=== PATIENT | male | born 1960 ===

== ENCOUNTER 2023-12-19 08:19 | Outpatient (RCR) | payer MEDICARE, BC, SELFPAY ==
--- NOTE | 2023-12-19 09:29 | PT.OPEX ---
PT [facility] Eval PT [facility] Outpatient Eval Start: 12/19/23 07:50 Freq: Status: Active Protocol: Document 12/19/23 09:20 KLV (Rec: 12/19/23 09:29 KLV [id number]) E-signed By Faith Greenwood, PT Physical Therapy Outpatient Evaluation Insurance Information Recert Due Date 03/14/24 Insurance Name [employer],Medicare B, [employer] Medical Diagnosis R knee OA Pre-op R TKA DOS 12/29/23 [facility] Treating Diagnosis R knee pain, limited knee ROM, gross LE weakness Referring MD Derrick Subjective Subjective Felipe reports to PT with primary complaint of chronic R knee pain limiting his ability to walk. Currently not using AD. Imaging indicating end stage OA and appropriate for R TKA. He is scheduled for SDS 12/29/23. Lives in [place] with his on the third floor of a condominium. Able to use elevator and no steps to enter building. Patient does not have AD or OP PT set up at this time however encouraged patient to do so prior to surgery. Patient notes understanding. Patient is active and would like to return to walking and playing baseball when he travels back to [place] this winter. PMH: L TKA, R TSA, L RCR, asthma, HTN Pain Comments 07/22 Date of Last Physician Visit 12/16/23 Date of Surgery (If applicable) 12/29/23 Current Work Status Retired Precautions Therapy Limitations/Systems Review Not Limited Objective Other/Pertinent Objective Knee ROM: -L 0-110 -R 0-116 (genu varus) Generally 4/5 LE strength, good quad contraction Generally normal gait with moderate bowing of R LE Assessment Assessment/Impression Felipe is a 63 year old male presenting to PT for preparation of upcoming R TKA DOS 12/29/23 d/t end stage OA. Session focused on education of post-operative fall prevention precautions, transfers, gait with AD, stair negotiation, post-operative exercises. He is able to verbalize precautions and demonstrated independence with exercises, gait and stairs. He is appropriate to proceed with surgery at this time. Plan of Care Rehabilitation Potential Good Physical Therapy Goals By end of session today, patient will... Demonstrate appropriate gait pattern with FWW to utilize post surgery for optimal safety when ambulating Demonstrate ability to negotiate stairs using appropriate stair pattern post surgery for optimal safety when at home and in community Verbalize understanding of most appropriate home set up including needed equipment for optimal safety and recovery post surgery Be independent in HEP program to show ability to perform appropriate exercises post surgery Treatment Plan/Direct Interventions Gait Training,Ice/Cold/ Vasopneumatic,Joint Mobilization,Manual Therapy, Neuromuscular Re-ed,Self-Care/ Home Management,Therapeutic Activities,Therapeutic Exercises Frequency/Duration Pre-op TKA Evaluation Patient Will Be Discharged From Therapy Completion of LTG(s), Independent w/HEP, Independently Progressing Evaluation Billing Untimed Code Treatment Minutes 25 Complexity Low Certification Information Initial Certification Date 12/19/23 Ending Certification Date 03/14/24 Provider Signature Required Yes Provider Signature Shows Agreement With POC & Medical Necessity Physician NPI Number Write NPI# Here Physician Comment/Change : Physician Signature & Date Requested Please Sign/Date Here
== END 2023-12-19 14:52 | disposition home or self-care (01) ==
PROVIDERS: PCP Family Medicine; Visit Provider Orthopaedic Surgery Sports Medicine
DX: M17.11 Unilateral primary osteoarthritis, right knee (principal); Z51.89 Encounter for other specified aftercare
CPT/HCPCS: 97110; 97161

== ENCOUNTER 2023-12-29 07:13 | Day surgery (SDC) | payer MEDICARE, BC, SELFPAY ==
[2023-12-29] VITALS (22 sets, daily range): BP systolic 99–140; BP diastolic 62–95; PULSE 49–71; RESP 12–17; TEMP 36.1–36.7; O2SAT 95–99; BMI 24.3
--- NOTE | 2023-12-29 07:31 | SUR.PREOP ---
Dr. Sweeney here to see patient
--- NOTE | 2023-12-29 07:37 | W.PM.H&PU ---
History & Physical Update History & Physical Update H&P Reviewed and patient assessed: No changes noted
[2023-12-29] MEDS: OXYCODONE (CR) 10 MG TAB.ER.12H PO (08:00)
[2023-12-29] MEDS: ACETAMINOPHEN 500 MG TABLET 1000 MG PO (08:00)
[2023-12-29] MEDS: LACTATED RINGERS 1000 ML 1,000 ML 100 ML IV ×2 (08:05→09:00)
[2023-12-29] MEDS: SODIUM CHLORIDE 0.9 % (FLUSH) 10 ML SYRINGE IVF (08:10)
[2023-12-29] MEDS: CELECOXIB 200 MG CAPSULE PO (08:30)
--- NOTE | 2023-12-29 08:45 | SUR.PREOP ---
TIME?OUT:?0846 PT/RN/MDA?VERIFICATION?OF?SURGICAL?SITE,?PROCEDURE,?AND?CONSENT OBTAINED?PRIOR?TO?INVASIVE?PROCEDURE. all in agreement.
[2023-12-29] MEDS: fentaNYL 100 MCG/2 ML inj IVP (08:47)
[2023-12-29] MEDS: MIDAZOLAM HCL 1 MG/ML inj IVP (08:47)
--- NOTE | 2023-12-29 09:07 | CRLHL7_ITS ---
For Patients: As a result of the Cures Act, medical imaging exams and procedure reports are released immediately into your electronic medical record. You may view this report before your referring provider. If you have questions, please contact your health care provider. Indication: Postop Technique: Two views right knee Findings/Impression: Hardware from a right total knee arthroplasty is in satisfactory position. Bone alignment is normal. No sign of acute fracture. Postop changes are within normal limits. Dictated by Yang Dinh MD @ 12/30/2023 10:01:00 AM (Electronically Signed)
[2023-12-29] MEDS: CEFAZOLIN 2 GM in 0.9 % SODIUM CHLORIDE Mini-bag 100 ML IVPB (09:10)
[2023-12-29] MEDS: TRANEXAMIC ACID 100 MG/ML INJ 1000 MG IV (09:15)
--- NOTE | 2023-12-29 10:09 | PM.ORPRC ---
Procedure Note Date of procedure: 12/29/23 Procedure: PREOPERATIVE DIAGNOSIS: 1. Right knee osteoarthritis, primary, severe POSTOPERATIVE DIAGNOSIS: 1. Right knee osteoarthritis, primary, severe PROCEDURE: 1. Right total knee arthroplasty SURGEON: Domingo Meza MD. NUCLEAR WASTE MANAGEMENT ENGINEER: MIESHA Thayer - Of note, a skilled secretary administrative assistant was critical for this case to aid in patient positioning, tissue retraction, limb manipulation/positioning, and closure. ANESTHESIA: Spinal anesthetic EBL: 50ml IMPLANTS: DePuy J&J uncemented femur/tibia, cemented patella TKA - Attune Press fit PS femur size 6 standard, size 6 tibia, 5mm poly spacer, 41mm cemented patella TOURNIQUET: 90 min at 300 torr COMPLICATIONS: None evident INDICATIONS: The patient is a pleasant 63-year-old male who has experienced severe right knee pain and difficulty bearing weight. Workup included x-rays which revealed severe osteoarthrosis in the knee. Given the deformity, the dysfunction, and the pain, as well as the failure of nonoperative management, recommendation was made for surgery. FINDINGS: Full-thickness chondral loss diffusely throughout the femur including medial, lateral, and trochlear regions. Also medial tibia was extensively worn. Moderate effusion upon entering the joint. DESCRIPTION OF PROCEDURE: Following a thorough discussion of risks, benefits, and alternatives consent was obtained and the right knee was marked. The patient was brought to the operating room and placed supine on the operating table. Induction of anesthesia was undertaken. 1 g IV Ancef and 1 g tranexamic acid was administered within 1 hr of incision preoperatively. Proper time-out was performed identifying proper patient, site, procedure. The operative extremity was prepped and draped in the appropriate sterile fashion using ChloraPrep after the patient was positioned supine with all bony prominences well padded. A longitudinal, anterior, midline skin incision was made starting approximately 3cm proximal to the superior pole of the patella and advanced distal to the tibial tubercle. A sub vastus approach was utilized . After mobilizing the patella, retropatellar fatpad was resected and the synovium in the suprapatellar pouch excised to visualize the anterior femoral cortex. We began with cutting the patella to help improve mobility of this patella and quad tendon. The patella was initially measured and found have a thickness of 24 mm. It was resected back to approximately 14 mm. Femoral preparation was performed via an intramedullary guide. Step drill allowed access into the femoral canal. The distal cutting guide was placed with 5? of valgus and 10 mm cut on the distal femur. Femur was sized using a anterior referencing guide in 3? of external rotation. This found have a best fit with the sizing noted above. The 4 in 1 cutting block was then placed, and the distal femur shaped accordingly. The box cut was then created and the trial implant inserted to confirm appropriate fit. We turned our attention to the proximal tibia. Extramedullary guide was utilized for cutting with the goal of being 90 degree cut from the mechanical axis of the tibia in the varus/valgus plane utilizing tibial crest as the primary alignment. Initially a 1 mm resection was performed from the medial tibial plateau. Ultimately, balancing was achieved in both flexion and extension in both varus and valgus. The knee was able to achieve full extension comfortably. It was sized to be a best fit with as noted above. The patella prep was completed with drilling and a trial placed. At this stage, trial implants were removed, the tibia and femoral components were opened and inserted. Thereafter, the patella was thoroughly irrigated normal saline and dried. The cement was previously mixed on the back table and cement placed followed by the implant. This was clamped and allowed remained stable until the cement cured. The real poly spacer was opened and inserted. All extra cement was removed, and a 3 min Betadine soak performed. Finally, a final irrigation round with normal saline was performed. Closure performed with 0 PDS and #0 Stratafix for the quad tendon/retinaculum. 2-0 Vicryl/Stratafix for the subcutaneous and 4-0 Monocryl for subcuticular closure. Dressings were applied and the patient was awoken from anesthesia after the tourniquet deflated and transferred the PACU in stable condition. A skilled secretary administrative assistant was critical for this case to aid in patient positioning, tissue retraction, bone exposure, limb manipulation/positioning, patient safety, and closure. PLAN: 1. Weight bear as tolerated operative extremity. 2. 23 hr perioperative antibiotics. 3. Ice. 4. PT/OT consults for ambulation assistance/mobility education. 5. Social work consult for discharge planning. 6. DVT prophylaxis with at SCDs, Osvaldo Hose, and aspirin twice daily.
--- NOTE | 2023-12-29 10:48 | W.ANESCHARGE ---
Anesthesia Charges Start Date/Time Anesthesia Start Date: 12/29/23 Anesthesia Start Time: 08:56 Stop Date/Time Anesthesia Stop Date: 12/29/23 Anesthesia Stop Time: 10:45
--- NOTE | 2023-12-29 11:17 | SUR.PHASEI ---
patient met discharge criteria per anesthesia
--- NOTE | 2023-12-29 11:55 | W.ANESCHARGE ---
Anesthesia Charges Start Date/Time Anesthesia Start Date: 12/29/23 Anesthesia Start Time: 08:56 Stop Date/Time Anesthesia Stop Date: 12/29/23 Anesthesia Stop Time: 10:45
--- NOTE | 2023-12-29 11:56 | P.NB_ITS ---
Nerve Block Nerve Block Time Seen by Provider: 08:46 Date Seen: 12/29/23 Type of block requested by surgeon for post-operative analgesia: adductor canal Side: right Time out performed: Yes Verification of patient name: Yes Verification of date of : Yes Site marking: site marked Name of person performing procedure: Abdirahman Continuous monitoring Was continuous monitoring of O2 sat, B/P, substation mechanic, recorded every 15 minutes?: Yes Procedure Checklist: sterile prep, needles and gloves Ultrasound guided. Images saved: Yes Medications given in 5ml increments after negative aspiration: Ropivicaine %: 0.5 mL: 20 Needle gauge: 20 Decadron (mg): 10 Precedex (mcg): 25 Patient tolerated procedure well: Yes Additional comments: Needle noted adjacent to nerve Block Charges Block Charge (with Pro Fee): Femoral Nerve Use of Ultrasound Machine for Block: Yes- US Guidance/pain block
--- NOTE | 2023-12-29 11:56 | W.PM.NB ---
Nerve Block Nerve Block Time Seen by Provider: 08:46 Date Seen: 12/29/23 Type of block requested by surgeon for post-operative analgesia: geniculars Side: right Time out performed: Yes Verification of patient name: Yes Verification of date of : Yes Site marking: site marked Name of person performing procedure: Abdirahman Continuous monitoring Was continuous monitoring of O2 sat, B/P, cardiac catheterization technologist, recorded every 15 minutes?: Yes Procedure Checklist: sterile prep, needles and gloves Medications given in 5ml increments after negative aspiration: Ropivicaine %: 0.5 mL: 9 Needle gauge: 25 Patient tolerated procedure well: Yes Block Charges Block Charge (with Pro Fee): Genicular Nerve Block Use of Ultrasound Machine for Block: No
== END 2023-12-29 15:23 | disposition home or self-care (01) ==
LOC: OR 07:14
PROVIDERS: PCP Family Medicine; Visit Provider Orthopaedic Surgery Sports Medicine
PROC: (CPT 27447; principal; 2023-12-29 09:00)
DX: M17.11 Unilateral primary osteoarthritis, right knee (principal); G89.18 Other acute postprocedural pain; I10 Essential (primary) hypertension; J45.40 Moderate persistent asthma, uncomplicated; E78.00 Pure hypercholesterolemia, unspecified; K21.9 Gastro-esophageal reflux disease without esophagitis
CPT/HCPCS: 27447; 01402; 64447; 64454; 73560; 76942; 97110; 97116; 97161; A9270; C1776; J0690; J1100; J2250; J2405; J2704; J2795; J3010; J7120